=== PATIENT | male | born 1975 | race African-American/Black ===

== ENCOUNTER 2018-05-11 22:18 | Emergency (ER) | payer SELFPAY ==
[~2018-05-11] VITALS: Ht 165.1 cm; Wt 70.5 kg
[2018-05-11 22:21] VITALS: Ht 165.1 cm; Wt 70.5 kg
[2018-05-11 23:02] LABS: BASOPHILS 0.1 % (0-2); EOSINOPHILS 0.5 % (0-7); HEMATOCRIT 43.6 % (42.0-54.0); IMMATURE GRANULOCYTES 0.1 % (0-5); LYMPHOCYTES 44.9 % (15-50); MCH 31.7 pg (26.0-34.0); MCHC 34.4 g/dL (31.0-37.0); MCV 92.2 fL (80.0-100.0); MEAN PLATELET VOLUME 8.9 fL (7.4-10.4); MONOCYTES 6.8 % (2-11); NEUTROPHILS 47.6 % (40-80); RBC 4.73 10x6/uL (4.20-6.10); RDW 13.4 % (11.5-14.5); WBC 7.5 10x3/uL (4.8-10.8)
[2018-05-11 23:04] LABS: PLATELET COUNT 408 10x3/uL (130-400)
[2018-05-11 23:18] LABS: APPEARANCE CLEAR (CLEAR); BILIRUBIN NEGATIVE (NEGATIVE); COLOR YELLOW (YELLOW); GLUCOSE NEGATIVE (NEGATIVE); KETONE NEGATIVE (NEGATIVE); NITRITE NEGATIVE (NEGATIVE); PROTEIN NEGATIVE (NEGATIVE); SPECIFIC GRAVITY 1.015 (1.005-1.020); UROBILINOGEN NORMAL (NORMAL)
[2018-05-11 23:19] LABS: BACTERIA NONE SEEN /hpf (NONE SEEN); EPITHELIAL CELLS 0-5 /hpf (0-5); RED CELLS - URINE 0-5 /hpf (0-5); WHITE CELLS - URINE 0-5 /hpf (0-5)
[2018-05-11 23:31] LABS: ALBUMIN 3.3 g/dL (3.4-5.0); ALKALINE PHOSPHATASE 90 U/L (46-116); ALT (SGPT) 35 U/L (10-68); BILIRUBIN - TOTAL 0.49 mg/dL (0.2-1.3); CALC OSMOLALITY 274 mosm/kg (275-300); CALCIUM 8.5 mg/dL (8.5-10.1); CARBON DIOXIDE 25.1 mmol/L (21.0-32.0); CHLORIDE - SERUM 103 mmol/L (98-107); GLUCOSE 106 mg/dL (74-106); LIPASE 81 U/L (73-393); POTASSIUM - SERUM 4.1 mmol/L (3.5-5.1); PROTEIN - SERUM 7.6 g/dL (6.4-8.2); SODIUM 138 mmol/L (136-145); UREA NITROGEN 10 mg/dL (7-18); eGFR NON AFRICAN AMERICAN 87 mL/min (90-120)
[2018-05-12] MEDS ORDERED: BENTYL 20 MG TA20 MG PO (00:52)
[2018-05-12 01:03] VITALS: BP 147/82
== END 2018-05-12 01:03 | disposition home or self-care (01) ==
LOC: D.ER 22:18
PROVIDERS: Family Medicine
DX: R10.9 Unspecified abdominal pain (principal); F17.200 Nicotine dependence, unspecified, uncomplicated

== ENCOUNTER 2018-05-22 14:21 | Emergency (ER) | payer SELFPAY ==
[~2018-05-22] VITALS: Ht 165.1 cm; Wt 72.7 kg
[~2018-05-22 14:21] MED LIST: BENTYL 20 MG TA20 MG PO
[2018-05-22 14:27] VITALS: Ht 165.1 cm; Wt 72.7 kg
[2018-05-22 16:35] LABS: BASOPHILS 0.1 % (0-2); EOSINOPHILS 0.8 % (0-7); HEMATOCRIT 44.8 % (42.0-54.0); HEMOGLOBIN 15.1 g/dL (13.5-17.5); IMMATURE GRANULOCYTES 0.1 % (0-5); LYMPHOCYTES 29.5 % (15-50); MCH 30.9 pg (26.0-34.0); MCHC 33.7 g/dL (31.0-37.0); MCV 91.8 fL (80.0-100.0); MEAN PLATELET VOLUME 9.4 fL (7.4-10.4); MONOCYTES 6.2 % (2-11); NEUTROPHILS 63.3 % (40-80); PLATELET COUNT 367 10x3/uL (130-400); RBC 4.88 10x6/uL (4.20-6.10); RDW 13.8 % (11.5-14.5); WBC 7.6 10x3/uL (4.8-10.8)
[2018-05-22 16:45] LABS: CALC OSMOLALITY 277 mosm/kg (275-300); CALCIUM 9.4 mg/dL (8.5-10.1); CARBON DIOXIDE 25.4 mmol/L (21.0-32.0); CHLORIDE - SERUM 104 mmol/L (98-107); CREATININE - SERUM 1.1 mg/dL (0.6-1.3); GLUCOSE 113 mg/dL (74-106); POTASSIUM - SERUM 4.4 mmol/L (3.5-5.1); SODIUM 137 mmol/L (136-145); UREA NITROGEN 20 mg/dL (7-18); eGFR NON AFRICAN AMERICAN 78 mL/min (90-120)
[2018-05-22] MEDS ORDERED: VIBRAMYCIN 100100 MG PO (17:28)
[2018-05-22 18:25] VITALS: BP 149/93
== END 2018-05-22 18:26 | disposition home or self-care (01) ==
LOC: D.ER 14:21
PROVIDERS: Emergency Medicine
DX: N45.1 Epididymitis (principal); F17.200 Nicotine dependence, unspecified, uncomplicated